=== PATIENT | male | born 1965 | race Hispanic/Latino ===

== ENCOUNTER → 2020-07-10 | Outpatient (CLI) | payer MEDICARE ==
[~2020-07-10] MED LIST: HYDR-4060 PO; METF-444 PO
== END | disposition home or self-care (01) ==
LOC: OIH 13:13
PROVIDERS: ATTEND Internal Medicine
DX: M85.80 Other specified disorders of bone density and structure, unspecified site (principal); M46.1 Sacroiliitis, not elsewhere classified; M24.852 Other specific joint derangements of left hip, not elsewhere classified; M24.851 Other specific joint derangements of right hip, not elsewhere classified; M84.48XA Pathological fracture, other site, initial encounter for fracture; M43.17 Spondylolisthesis, lumbosacral region
CPT/HCPCS: 72100; 72202